=== PATIENT | male | born 1975 | race Caucasian/White ===

== ENCOUNTER → 2025-01-03 | Outpatient (BNVA) | payer BC, SELFPAY | END | disposition home or self-care (01) | PROVIDERS: PCP Nurse Practitioner; Referring Provider Nurse Practitioner; Visit Provider Urology | DX: N40.1 Benign prostatic hyperplasia with lower urinary tract symptoms (principal); N13.8 Other obstructive and reflux uropathy; I10 Essential (primary) hypertension; E66.9 Obesity, unspecified; Z68.32 Body mass index [BMI] 32.0-32.9, adult | CPT/HCPCS: 81003; 99213; G0463 ==

== ENCOUNTER → 2025-01-03 | Outpatient (CLI) | payer BC, SELFPAY ==
[2025-01-03 13:45] LABS: Prostate Specific Antigen 0.48 ng/mL (0-4.00)
== END | disposition home or self-care (01) ==
PROVIDERS: PCP Internal Medicine; Referring Provider Urology; Visit Provider Urology
DX: N40.1 Benign prostatic hyperplasia with lower urinary tract symptoms (principal)
CPT/HCPCS: 36415; 84153

== ENCOUNTER → 2025-02-27 | Outpatient (BNVA) | payer BC, SELFPAY | END | disposition home or self-care (01) | PROVIDERS: PCP Nurse Practitioner; Referring Provider Nurse Practitioner; Visit Provider Urology | DX: N40.1 Benign prostatic hyperplasia with lower urinary tract symptoms (principal); R39.12 Poor urinary stream | CPT/HCPCS: 51741; 51798 ==

== ENCOUNTER 2025-06-19 08:30 | Outpatient (RCR) | payer BC, SELFPAY ==
--- NOTE | 2025-06-18 08:45 | XR_ITS ---
Examination: Nuclear medicine thyroid uptake and scan Date and time: June 18, 2025 0729 hours INDICATIONS: Neck pain this month, diagnosis thyroid toxicosis TECHNIQUE AND FINDINGS: Oral administration 26 uCi [id number] 6 hour 24 hour uptake and anterior oblique scans obtained 6 hour uptake 20.9% normal range 6-24% 24 hour uptake 33.1% normal range 10-36% Homogeneous thyroid scans IMPRESSION: Negative examination
== END 2025-06-24 23:59 | disposition home or self-care (01) ==
LOC: SNUC 08:30
PROVIDERS: PCP Physician Assistant Medical; Referring Provider Physician Assistant Medical; Visit Provider Physician Assistant Medical
DX: E05.90 Thyrotoxicosis, unspecified without thyrotoxic crisis or storm (principal)
CPT/HCPCS: 78013; A9516

== ENCOUNTER → 2025-09-05 | Outpatient (BNVA) | payer BC, SELFPAY | END | disposition home or self-care (01) | PROVIDERS: PCP Nurse Practitioner; Referring Provider Nurse Practitioner; Visit Provider Urology | DX: N40.1 Benign prostatic hyperplasia with lower urinary tract symptoms (principal); N13.8 Other obstructive and reflux uropathy; N41.1 Chronic prostatitis | CPT/HCPCS: 81003; 99212; G0463 ==